=== PATIENT | male | born 1950 | race Caucasian/White ===

== ENCOUNTER 2016-06-05 20:17 | Inpatient (IN) | payer MEDICARE, OTHER ==
[~2016-06-05 20:17] MED LIST: LORazepam INJ* 2 MG/ML 1 ML VIAL ONE
[2016-06-05 20:35] LABS: Hematocrit 37 % (42-52); Hemoglobin 12.4 g/dl (14.0-18.0); Mean Corpuscular HGB Conc 33 g/dl (31-36); Mean Corpuscular Hemoglobin 29 pg (27-31); Mean Corpuscular Volume 89 fL (80-94); Mean Platelet Volume 6 um3 (7.4-10.4); Red Blood Count 4.22 10^6/ul (4.0-5.4); Red Cell Distribution Width 13 % (10.5-15); White Blood Count 15.7 10^3/ul (3.5-10.8)
[2016-06-05 20:44] LABS: Add Diff/Slide Review? Slide Review Added; Comments Flag Yes
[2016-06-05 20:50] LABS: Albumin 3.6 g/dL (3.2-5.2); BUN/Creatinine Ratio 15.9 (8-20); Calcium 9.3 mg/dL (8.6-10.3); EGFR African American 28.1 (>60); EGFR Non-African American 21.8 (>60); Globulin 3.1 g/dL (2-4); Potassium 4.8 mmol/L (3.5-5.0); Total Bilirubin 0.7 mg/dL (0.2-1.0); Total Protein 6.7 g/dL (6.4-8.9)
--- NOTE | 2016-06-05 20:50 | RAD ---
INDICATION: Altered mental status, new onset seizure. COMPARISON: Comparison is made with a prior study from April 03 2009. TECHNIQUE: Contiguous axial sections of the brain were obtained from the skull base to the vertex without contrast. FINDINGS: The ventricles, cisterns and sulci are within normal limits. There is a small 3 mm area of decreased attenuation adjacent to the frontal horn of the left lateral ventricle suggestive of an old lacunar infarct. No other focal abnormalities or mass effect are seen. There is no evidence for hemorrhage. No significant focal osseous abnormality is seen. The visualized portion of the paranasal sinuses and mastoid air cells appear clear. IMPRESSION: 1. NO EVIDENCE FOR GROSS ACUTE INFARCT, MASS EFFECT OR HEMORRHAGE. 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
[2016-06-05] MEDS ORDERED: Vancomycin(*) 1,500 MG in NS 0.9% 250 ML* 250 ML IVPB ONE (20:53)
[2016-06-05] MEDS ORDERED: Piperac/Tazob 3.375 gm in NS* 3.375 GM/100 ML BAG IVPB ONE (20:53)
--- NOTE | 2016-06-05 20:59 | RAD ---
INDICATION: Shortness of breath. COMPARISON: There are no prior studies available for comparison. TECHNIQUE: A portable view of the chest was obtained. FINDINGS: Cardiac and mediastinal contours appear to be within normal limits. The lungs are hyperinflated and clear. No pleural effusion is seen. IMPRESSION: THERE IS CONSISTENT WITH COPD, NO EVIDENCE FOR ACUTE FINDING.
[2016-06-05 21:00] LABS: Troponin I 0.25 ng/mL (<0.04)
[2016-06-05] MEDS ORDERED: NS 0.9% 250 ML* 250 ML IV ONE (21:12)
[2016-06-05 21:50] LABS: FIO2 40
[2016-06-05 21:53] LABS: PCO2 Arterial 57 mmHg (35-45)
[2016-06-05] MEDS ORDERED: NS 0.9% 250 ML* 0 ML ONE (21:56)
[2016-06-05] MEDS ORDERED: NS 0.9% 500 ML BAG* 500 ML IV SCH (22:00)
[2016-06-05 22:03] LABS: Urine Bacteria Absent (Absent); Urine Bilirubin Negative (Negative); Urine Glucose Negative (Negative); Urine Nitrite Negative (Negative)
[2016-06-05 22:29] LABS: Benzodiazepine Urine Screen None Detected (None Detect)
[2016-06-05] MEDS ORDERED: Acetaminophen TAB* 325 MG PO PRN (22:32)
[2016-06-05] MEDS ORDERED: Ondansetron INJ* 2 MG/ML VIAL IV PRN (22:32)
[2016-06-05] MEDS ORDERED: Albuterol/Ipratropium NEB.SOL* Albuterol 2.5 MG/Ipratropium 0.5 MG 3 ML INH PRN (22:36)
[2016-06-05 23:05] LABS: TSH (Thyroid Stimulating Horm) 0.43 mcIU/mL (0.34-5.60)
--- NOTE | 2016-06-05 23:14 | RAD ---
INDICATION: Abdominal distention, respiratory distress. COMPARISON: Comparison is made with a prior chest x-ray study obtained earlier today. TECHNIQUE: A CT scan of the chest, abdomen and pelvis was performed without intravenous or oral contrast. Contiguous axial sections were obtained from the lung apices through the symphysis pubis. Images were reconstructed in the coronal and sagittal planes. FINDINGS: There is moderate bilateral emphysematous change. There is a small infiltrate in the right lower lobe. There is minimal atelectasis in the left lower lobe. No pleural effusion is seen. No significant enlarged mediastinal or hilar lymph nodes are seen. The heart is within normal limits in size. No pericardial effusion is present. The thoracic aorta is normal in caliber. The liver and spleen are normal in size without significant focal abnormality. No calcified gallstones are seen. The pancreas is normal in size. The adrenal glands appear to be within normal limits. The right kidney is atrophic. There is a 2 cm hypodense area present in the midportion of the kidney suggestive of a cyst. No hydronephrosis is present. There are calcifications within the left renal hilum which appear vascular. No renal calculi are seen. There is perinephric stranding around both kidneys. There is a catheter within the urinary bladder which is nondistended. The aorta is normal in caliber and there is severe calcific plaque present. No significant enlarged retroperitoneal lymph nodes are seen. The stomach and small bowel are nondistended. There is moderate gaseous distention of the colon. There is no evidence for diverticulitis or colitis. No free intraperitoneal air or fluid is seen. There is a moderate compression fracture of the L2 vertebral body and a mild compression fracture of the L4 vertebral body which are unchanged from a prior lumbar spine series from March 2009. IMPRESSION: 1. SMALL RIGHT LOWER LOBE INFILTRATE SUGGESTIVE OF PNEUMONIA. 2. EMPHYSEMA. 3. GASEOUS DISTENTION OF THE COLON, NO EVIDENCE FOR OBSTRUCTION. 4. CHRONIC COMPRESSION FRACTURES OF LUMBAR VERTEBRAE NOTED.
[2016-06-05 23:23] LABS: Prolactin 7.4 ng/mL (1.0-20.0)
[2016-06-06] MEDS: NS 0.9% 1000 ML* 1,000 ML IV ONE ×2 (00:06→00:07)
[2016-06-06] MEDS: NS 0.9% 1000 ML* 1,000 ML IV SCH ×2 (00:18→11:53)
[2016-06-06] MEDS: cefTRIAXone VIAL(*) 1,000 MG in NS 0.9% 50 ML* 50 ML IVPB SCH ×2 (00:20→23:57)
[2016-06-06] MEDS: Albuterol 2.5 MG/3 ML NEB.SOL* (0.083%) INH SCH ×6 (00:41→20:01)
[2016-06-06] MEDS: Azithromycin IV(*) 500 MG in NS 0.9% 250 ML* 250 ML IVPB SCH ×2 (00:52→22:30)
[2016-06-06] MEDS: predniSONE TAB* 20 MG PO SCH ×2 (00:58→08:37)
--- NOTE | 2016-06-06 01:05 | PN ---
Progress Note - Progress Note Note: Influenza B positive, ordered Droplet precautions & renal dosing of oseltamivir.
[2016-06-06 01:15] LABS: BUN/Creatinine Ratio 17.7 (8-20); Calcium 7.9 mg/dL (8.6-10.3); EGFR African American 33.6 (>60); EGFR Non-African American 26.1 (>60); Potassium 3.9 mmol/L (3.5-5.0)
[2016-06-06 01:18] LABS: Troponin I 0.19 ng/mL (<0.04)
[2016-06-06] MEDS ORDERED: Piperac/Tazob 3.375 gm in NS* 3.375 GM/100 ML BAG IVPB SCH (01:30)
[2016-06-06 01:44] LABS: Urine Bacteria Absent (Absent); Urine Bilirubin Negative (Negative); Urine Glucose Negative (Negative); Urine Nitrite Negative (Negative)
[2016-06-06 04:12] LABS: Hematocrit 31 % (42-52); Hemoglobin 9.9 g/dl (14.0-18.0); Mean Corpuscular HGB Conc 33 g/dl (31-36); Mean Corpuscular Hemoglobin 30 pg (27-31); Mean Corpuscular Volume 91 fL (80-94); Mean Platelet Volume 6 um3 (7.4-10.4); Red Blood Count 3.37 10^6/ul (4.0-5.4); Red Cell Distribution Width 14 % (10.5-15); White Blood Count 10.2 10^3/ul (3.5-10.8)
[2016-06-06 04:14] LABS: Add Diff/Slide Review? Slide Review Added; Comments Flag Yes
[2016-06-06 04:52] LABS: BUN/Creatinine Ratio 17.8 (8-20); Calcium 7.7 mg/dL (8.6-10.3); EGFR African American 34.6 (>60); EGFR Non-African American 26.9 (>60); Potassium 3.9 mmol/L (3.5-5.0)
[2016-06-06 04:57] LABS: Troponin I 0.23 ng/mL (<0.04)
[2016-06-06] MEDS: Heparin VIAL(*) 5000 UNITS/ML VIAL (FIVE THOUSAND) SUBCUT SCH ×4 (05:27→21:31)
[2016-06-06] MEDS: busPIRone TAB* 5 MG PO SCH ×3 (05:27→21:31)
--- NOTE | 2016-06-06 06:39 | HP ---
HISTORY AND PHYSICAL:* ADDENDUM: Please add this to the end of the dictation: Elevated troponin: Etiology is unclear; it could be demand ischemia from possible sepsis with an unclear source. My plan at this point is to trend these , get an echo in the morning. He is not having any active cardiac symptoms, so we will continue to follow. ZACK WATSON, PETE [id number]/[facility] #: [id number] RUDY
--- NOTE | 2016-06-06 06:39 | HP ---
ADDENDUM NOW INCLUDED ON THIS REPORT HISTORY AND PHYSICAL: DATE OF ADMISSION: 06/05/16 PRIMARY CARE PROVIDER: Sonia MCKOY. ATTENDING PHYSICIAN WHILE IN THE HOSPITAL: Dr. Monsalve *(report dictated by Chau Watson NP). CHIEF COMPLAINT: "I'm sick." HISTORY OF PRESENT ILLNESS: Mr. Torrez is a 65-year-old male patient with a history of hypertension, COPD and chronic back pain. He is a very vague historian. I have asked him why he came into the ER today and he simply said I don't feel good; I feel sick. I asked him to elaborate on this and said, "How long have you been sick for and what you mean when you say you feel sick." I asked him if he had been feeling shortness of breath or cough. He said positive yes to shortness of breath. He had been having chills. Denied any chest pain, and he says he has actually been gaining weight and the family said that he has been declining over the last 3 weeks. The patient said that he had not had any vomiting or diarrhea. The son says that he has had a generalized decline over the last 3 years, but they have noticed acutely that with his mentation he was a little bit more confused than his baseline. Again, both his son and the patient are very poor historians. I asked him why he called the ambulance today and the son had said that his cousin was with his father, the patient's nephew and the nephew who, unfortunately, isn't here noticed that the patient had had an episode where he became unresponsive while sitting in his hospital bed. He dozed off. The nephew thinks that maybe he had a seizure. It is unclear if he did or not. The patient's son instructed the nephew to call 911 and he came into the hospital. When he came in, he was noted to be altered by the ED staff, but now he is answering my questions. He is not complaining of a headache or any neck pain. There has been no recent changes in medications. He has been taking his medications as prescribed. There have been no reports of rashes or any pain. But, it was found ultimately that he had a lactic acidosis of 5. His troponin was elevated. It was noted that he had a sodium of 118, and a troponin that was elevated, and the hospitalist service was asked to evaluate for admission. PAST MEDICAL HISTORY: Significant for: 1. Hypertension. 2. COPD. 3. Back pain. PAST SURGICAL HISTORY: Denied. HOME MEDICATIONS: According to the bottles he brought in include: 1. BuSpar 5 mg p.o. ever 8 hours. 2. Lisinopril 30 mg p.o. daily. 3. Prilosec 20 mg p.o. b.i.d. 4. Hydrochlorothiazide 50 mg daily. 5. B12 500 mcg p.o. daily. 6. Robaxin 500 mg p.o. t.i.d. as needed. 7. Amoxicillin 500 mg p.o. t.i.d. 8. DayQuil liquid one capsule p.o. daily. 9. Vitamin D 3000 mg p.o. daily. ALLERGIES TO MEDICATIONS: No known drug allergies. FAMILY HISTORY: The patient's mother is alive. Father had a history of lung disease; he was a coal loader. SOCIAL HISTORY: He does not smoke. He does smoke marijuana daily. He does drink alcohol. Surrogate decision maker is his sister, Davina. REVIEW OF SYSTEMS: No documented fever, but he does admit to having chills. He denied having any significant weight change with the exception he said he has gained weight. There is no double vision. There is no ear discharge. He denied having any rhinorrhea. No sore throat. No thyroid enlargement. Denied having any chest pain. There is no orthopnea. No nocturnal dyspnea. There is dyspnea on exertion and shortness of breath. There is no abdominal pain. No nausea, no vomiting. No dysuria, no frequency. No loss of conscious. No pruritus and no skin ulcerations. Review of 14 systems completed and all others negative. PHYSICAL EXAMINATION GENERAL: At this time Mr. Torrez is a 65-year-old male patient. He appears older than the stated age, and he is chronically ill appearing. He does not appear to be in any acute distress. VITAL SIGNS: Reveals blood pressure 155/75, pulse 105, respirations 18, O2 sat 93%, and a temperature of 97.9. HEENT: Head is atraumatic and normocephalic. Eyes: EOMs intact. His sclerae was anicteric. Left Eye: He does appear to have a cataract to the left eye. He does have some redness to that eye as well. No discharge noted though. Pupils reactive to light. Throat: Oral mucosa appeared to be dry. No oropharyngeal erythema. NECK: Supple. LUNGS: He had wheezes throughout and equal diaphragmatic expansion. HEART: Sounds S1, S2. Regular rate and rhythm. No murmurs, rubs or gallops. He is tachycardic at a rate of 120. ABDOMEN: His abdomen was soft, flat and mildly distended. There was no tenderness on exam. EXTREMITIES: Pulses are 2+ throughout. He is able to move all 4 extremities with 5/5 strength. NEUROLOGIC: The patient is awake. He is alert. He is confused to time, and place and alert to himself. His trap setter were equal. Tongue midline. His speech was clear. He was moving all 4 extremities. He has no drift. He had no gross focal deficits. His skin is intact. DIAGNOSTIC STUDIES/LABORATORY DATA: Labs today reveal WBC 15.7, RBC 4.22, hemoglobin 12.4, hematocrit 37, platelet count 400. The INR was 0.93. The blood gas showed pH 729, pCO2 57, pO2 72. His sodium was 118 and his chloride was 74, his potassium was 4.8. His BUN was 46, creatinine was 2.9; I don't have previous for comparison. His glucose was 100. His lactic was 5.3. Calcium 9.3, total bili 0.7. AST 76, ALT 24, alk phos 99, troponin 0.25, albumin 3.6. Urine showed 1+ protein, trace ketones, 2+ blood. Urine toxicology was positive for cannabis. He did have an EKG obtained today which did show a sinus tachycardia with a PVC rate of 133. No previous EKG for comparison. He had a chest x-ray which appeared to have hyperinflated lungs and no infiltration on my read; radiology read this as consistent with COPD elements with acute findings. He had a brain CT obtained today which revealed no evidence for gross acute infarct, mass effect, or hemorrhage. Old lacunar infarct. Old medical records were reviewed. ASSESSMENT AND PLAN: Mr. Torrez is a 65-year-old male patient with multiple electrolyte abnormalities coming in today with complaints eventually of altered mental status, shortness of breath. Hospitalist service was asked to evaluate for admission. He will be admitted under inpatient status for: 1. Hyponatremia. Again, it is unclear if he had a seizure or not. My plan at this point will be to go ahead; he appears to be very dehydrated. I think the hyponatremia is probably from hypovolemia. My plan is go ahead and hydrate the patient. I will give him a liter of fluids wide open and normal saline at 125 cc an hour. I will check his BNP at midnight. I do not think he needs 3% right now unless he has seizure. I will get a urine sodium, urine serum, urine osmolality, and a serum osmolality. In addition to this, I will check a TSH and cortisol level. I think, again most likely and I will stop his hydrochlorothiazide as this may be an offending agent. He does appear to be dehydrated. I am going to get a CT of the chest, abdomen and pelvis. 2. Systemic inflammatory response syndrome. He certainly does have signs consistent with systemic inflammatory response syndrome with lactic of 5.2. He has got a white count. He is tachycardic. I do not have an obvious source. His lungs on exam. He was having significant wheezing. Certainly, if he has an atypical pneumonia that could cause his low sodium. My plan would be to put him empirically on Zosyn and azithromycin, and to look for sources. We will send off urine cultures and blood cultures. And again, the chest x-ray did not show pneumonia, but I think he does warrant a CT of the chest and of the abdomen and pelvis given the hyponatremia, and the fact that he did have such a long history of smoking one might think malignancy could be in the differential , and will continue to follow. 3. Lactic acidosis. Again, if he is truly did seize, that could cause this, or again if he is septic this could cause a lactic of 5.3. So I am putting him in the ICU, hydrating him with fluids; and, hopefully, with fluids he comes down. His blood pressure is stable and we will continue to monitor. 4. Acute renal failure. We will send off a FeNa. We did get a CT of abdomen and pelvis to look for any urinary obstruction. He is not having any pain. So I think this is less likely. I will go ahead and again hydrate him, send off a FeNa. I think this is probably prerenal, but he may have ATN and will hold his blood pressure meds for the time being. 5. Chronic obstructive pulmonary disease. He is wheezing pretty significantly on exam, so I put him on standing neb. In addition to this, I also placed him on steroids and Dulera, and we will continue to follow and I've ordered p.r.n. albuterol. 6. Chronic back pain. I have ordered Tylenol as needed. 7. DVT prophylaxis. We will place him on heparin subcu. 8. Code status. He wished to be a DNR. 9. Fluid, electrolytes and nutrition. He will be on a regular diet. TIME SPENT: Time spent on the admission was 70 minutes, greater than half the time was [id number] with the patient obtaining history and physical, other half of the time was spent going over the plan of care with the patient and implementing the plan of care. I did discuss the plan of care with my attending , Dr. Monsalve; he is in agreement. CHAU WATSON NP ADDENDUM: : Elevated troponin: Etiology is unclear; it could be demand ischemia from possible sepsis with an unclear source. My plan at this point is to trend these , get an echo in the morning. He is not having any active cardiac symptoms, so we will continue to follow. CHAU WATSON NP CC: [facility] in [place].* [id number]/[facility] #: [id number]/[facility] #: [id number] RUDY
[2016-06-06] MEDS: Mometasone/Formoter 200/5 MDI INH SCH ×2 (07:30→20:02)
[2016-06-06] MEDS: Oseltamivir CAP* 30 MG CAP PO SCH (08:37)
[2016-06-06] MEDS: Omeprazole CAP* 20 MG PO SCH ×2 (08:37→21:31)
--- NOTE | 2016-06-06 10:36 | ECHO ---
Patient: CARSON IVORY [facility] Rec#: [id number] : 1950 Date: 06/06/2016 Age: 65y Height: 177.8 cm / 70.0 in Weight: 63.5 kg / 140.0 lbs Sex: M BSA: 1.79 Room#: [facility] Admit Date#: 06/05/2016 Type: Inpatient Referring: Chau Mackay NP Reading: Romel Boyd MD Airline Captain: Marquita Cabrera RDCS CC: Shahid Keith MD Transthoracic Echocardiogram Indication: ACS BP: 154/74 HR: 113 Rhythm: Tachycardia Findings History: HTN,COPD,chronic back pain, hyponatremia. Technical Comments: The study is technically difficult. The study is technically limited due to poor apical windows. The study is technically limited due to the patient's history of COPD. Completed at 0850. Left Ventricle: The left ventricular chamber size is normal. Global left ventricular wall motion and contractility are within normal limits. There is normal left ventricular systolic function. Unable to estimate left ventricular ejection fraction. In limited acceptable quality views , the LVEF appears approximately 55-60%. The patient was unable to perform a Valsalva maneuver. Left Atrium: The left atrial chamber size is normal. Right Ventricle: The right ventricle is not well visualized. The right ventricle wall thickness is mildly increased. The right ventricular global systolic function is normal. Right Atrium: The right atrial cavity size is normal. Aortic Valve: The aortic valve structure is not well visualized. There is no evidence of aortic regurgitation. There is no evidence of aortic stenosis. Mitral Valve: The mitral valve leaflets are mildly thickened. There is no evidence of mitral regurgitation. There is no evidence of mitral stenosis. Tricuspid Valve: The tricuspid valve leaflets are mildly thickened. There is moderate to severe tricuspid regurgitation. The tricuspid regurgitant jet is extending to dome (back wall of RA). There is evidence of severe pulmonary hypertension. There is no tricuspid stenosis. Pulmonic Valve: The pulmonic valve structure is not well visualized. Pericardium: The pericardium appears normal. Aorta: The aortic arch is not well visualized. There is mild dilatation of the aortic root. Pulmonary Artery: The main pulmonary artery is not well visualized. Venous: The inferior vena cava appears normal in size. There is a greater than 50% respiratory change in the inferior vena cava dimension. Conclusions The study is technically difficult. The study is technically limited due to poor apical windows. The study is technically limited due to the patient's history of COPD. Completed at 0850. There is normal left ventricular systolic function. Unable to estimate left ventricular ejection fraction. In limited acceptable quality views , the LVEF appears approximately 55-60%. There is moderate to severe tricuspid regurgitation. There is evidence of severe pulmonary hypertension. There is mild dilatation of the aortic root. No reports of prior studies are offeredf for comparison. Measurements Name Value Normal Range RVIDd (AP) 2D 2.3 cm (0.9 - 2.6) RVDdMajor (2D) 2.5 cm (2.2 - 4.4) RVAW (2D) 0.7 cm (0.2 - 0.5) RAd ISD 4CH 3.8 cm (3.4 - 4.9) RA (A4C)W 2.5 cm (2.9 - 4.6) IVSd (2D) 0.8 cm (0.6 - 1) LVPWd (2D) 1 cm (0.6 - 1) LVIDd (2D) 4.2 cm (3.6 - 5.4) LVIDs (2D) 1.9 cm - LV FS (2D) 54 % (25 - 45) Aortic Annulus 2.3 cm (1.4 - 2.6) Ao root diameter (2D) 4.1 cm (2.1 - 3.5) Aortic arch 1.7 cm (1.8 - 3.4) Descending Ao 0.3 cm - LA dimension (AP) 2D 2.3 cm (2.3 - 3.8) LAd ISD 4CH 3.7 cm (2.9 - 5.3) LA ISD 4CH W 3.3 cm (2.5 - 4.5) Name Value Normal Range MV E-wave Vmax 0.7 m/sec - MV deceleration time 124 msec - MV A-wave Vmax 0.9 m/sec - MV E:A ratio 0.85 ratio - LV septal e' Vmax 0.08 m/sec - LV lateral e' Vmax 0.09 m/sec - LV E:e' septal ratio 8.75 ratio - LV E:e' lateral ratio 7.78 ratio - Name Value Normal Range AV Vmax 1.7 m/sec - AV VTI 22.5 cm - AV peak gradient 12.03 mmHg - AV mean gradient 6.25 mmHg - LVOT Vmax 0.8 m/sec - LVOT VTI 16.5 cm - LVOT peak gradient 2.63 mmHg - LVOT mean gradient 1.17 mmHg - Name Value Normal Range TR Vmax 3.9 m/sec - TR peak gradient 59 mmHg - RAP 3 mmHg - RVSP 62 mmHg - IVC diameter 1.5 cm -
[2016-06-06] MEDS ORDERED: NS 0.9% 1000 ML* 1,000 ML IV ONE (17:12)
--- NOTE | 2016-06-06 17:18 | PN ---
Subjective Date of Service: 06/06/16 Interval History: Feels better. Fair appetite. No new c/o. Uses O2 at 4 L at home, walks at most 20 feet at a time at home. Objective Active Medications: Acetaminophen (Tylenol Tab*) 650 mg PO Q4H PRN PRN Reason: FEVER/PAIN Albuterol (Ventolin 2.5 Mg/3 Ml Neb.Cora*) 2.5 mg INH Q4H [facility] Last Admin: 06/06/16 15:44 Dose: 2.5 mg Albuterol/Ipratropium (Duoneb (Albuterol 2.5 Mg/Ipratropium 0.5 Mg)) 1 neb INH Q2H PRN PRN Reason: SOB/WHEEZING Buspirone HCl (Buspar Tab*) 5 mg PO Q8HR [facility] Last Admin: 06/06/16 13:35 Dose: 5 mg Heparin Sodium (Porcine) (Heparin Vial(*)) 5,000 units SUBCUT Q8HR [facility] Last Admin: 06/06/16 13:35 Dose: Not Given Azithromycin 500 mg/ Sodium (Chloride) 250 mls @ 250 mls/hr IVPB Q24H [facility] Last Admin: 06/06/16 00:52 Dose: 250 mls/hr Ceftriaxone Sodium 1,000 mg/ (Sodium Chloride) 50 mls @ 200 mls/hr IVPB Q24H [facility] Last Admin: 06/06/16 00:20 Dose: 200 mls/hr Mometasone Furoate/Formoterol Fumar (Dulera 200/5 Mdi*) 2 puff INH BID [facility] Last Admin: 06/06/16 07:30 Dose: 2 puff Omeprazole (Prilosec Cap*) 20 mg PO BID [facility] Last Admin: 06/06/16 08:37 Dose: 20 mg Ondansetron HCl (Zofran Inj*) 4 mg IV Q6H PRN PRN Reason: NAUSEA Oseltamivir Phosphate (Tamiflu Cap*) 30 mg PO DAILY [facility] Last Admin: 06/06/16 08:37 Dose: 30 mg Prednisone (Deltasone Tab*) 60 mg PO DAILY [facility] Last Admin: 06/06/16 08:37 Dose: Not Given Vital Signs 06/05/16 06/05/16 06/05/16 22:30 22:32 23:00 Temperature 97.8 F Pulse Rate 110 114 Respiratory 15 16 Rate Blood Pressure 156/85 173/84 (mmHg) O2 Sat by Pulse 97 98 Oximetry 06/05/16 06/05/16 06/06/16 23:07 23:30 00:00 Temperature 97.8 F Pulse Rate 110 112 Respiratory 15 15 15 Rate Blood Pressure 158/68 (mmHg) O2 Sat by Pulse 98 100 Oximetry 06/06/16 06/06/16 06/06/16 00:15 00:16 00:20 Temperature Pulse Rate 81 80 Respiratory 14 14 Rate Blood Pressure 85/51 85/52 (mmHg) O2 Sat by Pulse 99 98 Oximetry 06/06/16 06/06/16 06/06/16 00:29 00:30 00:32 Temperature 98.2 F Pulse Rate 77 76 76 Respiratory 14 15 15 Rate Blood Pressure 77/42 77/44 77/47 (mmHg) O2 Sat by Pulse 99 98 99 Oximetry 06/06/16 06/06/16 06/06/16 00:35 00:39 00:42 Temperature Pulse Rate 75 76 114 Respiratory 14 14 18 Rate Blood Pressure 75/48 81/50 (mmHg) O2 Sat by Pulse 98 99 100 Oximetry 06/06/16 06/06/16 06/06/16 01:00 02:00 02:01 Temperature 97.8 F 97.9 F 97.9 F Pulse Rate 116 Respiratory 15 14 13 Rate Blood Pressure 158/76 87/55 (mmHg) O2 Sat by Pulse 100 Oximetry 06/06/16 06/06/16 06/06/16 03:00 04:00 04:48 Temperature 98.0 F 98.1 F Pulse Rate 117 Respiratory 11 15 20 Rate Blood Pressure 99/52 158/77 (mmHg) O2 Sat by Pulse 98 Oximetry 06/06/16 06/06/16 06/06/16 04:51 05:00 05:34 Temperature 98.1 F Pulse Rate 115 Respiratory 16 15 16 Rate Blood Pressure 154/74 (mmHg) O2 Sat by Pulse 100 Oximetry 06/06/16 06/06/16 06/06/16 06:00 07:00 07:01 Temperature 98.0 F 97.9 F 97.9 F Pulse Rate 108 118 116 Respiratory 11 16 16 Rate Blood Pressure 119/66 164/76 (mmHg) O2 Sat by Pulse 99 99 99 Oximetry 06/06/16 06/06/16 06/06/16 07:19 08:00 09:00 Temperature 98.1 F 98.2 F Pulse Rate 110 111 104 Respiratory 17 19 11 Rate Blood Pressure 142/68 162/73 (mmHg) O2 Sat by Pulse 99 95 95 Oximetry 06/06/16 06/06/16 06/06/16 10:00 11:00 11:08 Temperature 98.5 F 98.7 F 98.7 F Pulse Rate 116 109 Respiratory 19 12 19 Rate Blood Pressure 156/70 141/66 (mmHg) O2 Sat by Pulse 99 97 Oximetry 06/06/16 06/06/16 06/06/16 11:11 12:00 13:00 Temperature 98.9 F 98.9 F Pulse Rate 114 115 120 Respiratory 13 18 16 Rate Blood Pressure 156/68 116/52 (mmHg) O2 Sat by Pulse 99 100 94 Oximetry 06/06/16 06/06/16 06/06/16 13:52 14:00 15:00 Temperature 99.1 F 99.1 F Pulse Rate 118 112 Respiratory 16 14 15 Rate Blood Pressure 90/43 112/67 (mmHg) O2 Sat by Pulse 99 99 Oximetry 06/06/16 06/06/16 06/06/16 15:46 15:58 16:00 Temperature 99.3 F Pulse Rate 110 112 Respiratory 12 13 Rate Blood Pressure 147/64 (mmHg) O2 Sat by Pulse 98 96 96 Oximetry 06/06/16 17:00 Temperature 99.1 F Pulse Rate 111 Respiratory 12 Rate Blood Pressure 130/62 (mmHg) O2 Sat by Pulse 95 Oximetry Oxygen Devices in Use Now: Simple Face Mask Appearance: Alert, head partly up in ICU bed. Neutral affect. Looks comfortable. Eyes: No Scleral Icterus Ears/Nose/Mouth/Throat: Clear Oropharnyx, Mucous Membranes Moist Neck: NL Appearance and Movements; NL JVP, No Thyroid Enlargement, Masses Respiratory: Symmetrical Chest Expansion and Respiratory Effort, Clear to Percussion, - - diminishede BS BL Cardiovascular: NL Sounds; No Murmurs; No JVD, RRR, No Edema, - Extremities: No Edema, No Clubbing, Cyanosis, - Skin: No Rash or Ulcers, No Nodules or Sclerosis, - Neurological: NL Sensation, - - Knew the month but not the day. Seems passive. Result Diagrams: 06/06/16 03:55 06/06/16 03:55 Additional Lab and Data: Lab Results 06/05/16 06/05/16 06/05/16 Range/Units 20:20 20:20 20:25 WBC 15.7 H (3.5-10.8) 10^3/ul RBC 4.22 (4.0-5.4) 10^6/ul Hgb 12.4 L (14.0-18.0) g/dl Hct 37 L (42-52) % MCV 89 (80-94) fL MCH 29 (27-31) pg MCHC 33 (31-36) g/dl RDW 13 (10.5-15) % Plt Count 400 (150-450) 10^3/ul MPV 6 L (7.4-10.4) um3 Neut % (Auto) 86.3 H (38-83) % Lymph % (Auto) 3.8 L (25-47) % [place] % (Auto) 9.5 H (1-9) % Eos % (Auto) 0 (0-6) % Baso % (Auto) 0.4 (0-2) % Absolute Neuts (auto) 13.5 H (1.5-7.7) 10^3/ul Absolute Lymphs (auto) 0.6 L (1.0-4.8) 10^3/ul Absolute Monos (auto) 1.5 H (0-0.8) 10^3/ul Absolute Eos (auto) 0 (0-0.6) 10^3/ul Absolute Basos (auto) 0.1 (0-0.2) 10^3/ul Absolute Nucleated RBC 0.01 10^3/ul Nucleated RBC % 0 INR (Anticoag Therapy) 0.93 (0.89-1.11) POC Glucose (mg/dL) 108 H (74-106) mg/dL Microbiology and Other Data: Microbiology 06/06/16 14:01 Nasal Screen MRSA (PCR)(RAMANDEEP) - Final Nasal Mrsa Negative 06/06/16 01:20 Legionella Urinary Antigen - Final Urine Negative Legionella Streptococcus pneumoniae Ag Screen - Final Negative S. pneumo Antigen 06/06/16 00:25 Influenza Types A,B Antigen (RAMANDEEP) - Final Nasal Specimen received for Influenza A/B Molecular testing Assess/Plan/Problems-Billing Assessment: - Patient Problems (1) Hyponatremia Current Visit: Yes Status: Acute Code(s): E87.1 - HYPO-OSMOLALITY AND HYPONATREMIA SNOMED Code(s): 71145023 Comment: Hopefully due mainly to thiazide. Family aware he can't take any more thiazide. NSS at 75 ml/hr, BMP 06/07. (2) COPD (chronic obstructive pulmonary disease) Current Visit: Yes Status: Acute Code(s): J44.9 - CHRONIC OBSTRUCTIVE PULMONARY DISEASE, UNSPECIFIED SNOMED Code(s): 68407264 Comment: Advanced COPD for many years. Quit smoking about 8 yrs ago. Likely the cause of his severe PHTN.
[2016-06-06] MEDS: PTO: Dorzolamide 2% OPTH (NF) 10 ML BTL LEFT EYE SCH (21:30)
[2016-06-07] MEDS: Albuterol 2.5 MG/3 ML NEB.SOL* (0.083%) INH SCH ×6 (00:46→20:24)
[2016-06-07] MEDS: busPIRone TAB* 5 MG PO SCH ×3 (05:37→21:21)
[2016-06-07] MEDS: Heparin VIAL(*) 5000 UNITS/ML VIAL (FIVE THOUSAND) SUBCUT SCH ×3 (05:44→21:24)
[2016-06-07 06:58] LABS: BUN/Creatinine Ratio 18.2 (8-20); EGFR Non-African American 47.4 (>60); Potassium 3.7 mmol/L (3.5-5.0)
[2016-06-07] MEDS: Mometasone/Formoter 200/5 MDI INH SCH ×2 (07:13→20:24)
[2016-06-07] MEDS: Omeprazole CAP* 20 MG PO SCH ×2 (08:48→21:21)
[2016-06-07] MEDS: PTO: Dorzolamide 2% OPTH (NF) 10 ML BTL LEFT EYE SCH ×3 (08:48→21:21)
[2016-06-07] MEDS: Oseltamivir CAP* 30 MG CAP PO SCH ×2 (08:48→21:21)
[2016-06-07] MEDS: predniSONE TAB* 20 MG PO SCH (09:00)
--- NOTE | 2016-06-07 15:45 | PN ---
Subjective Date of Service: 06/07/16 Interval History: Appetite returned. Slept better. No new c/o. Objective Active Medications: Acetaminophen (Tylenol Tab*) 650 mg PO Q4H PRN PRN Reason: FEVER/PAIN Albuterol (Ventolin 2.5 Mg/3 Ml Neb.Cora*) 2.5 mg INH Q4H [facility] Last Admin: 06/07/16 11:04 Dose: 2.5 mg Albuterol/Ipratropium (Duoneb (Albuterol 2.5 Mg/Ipratropium 0.5 Mg)) 1 neb INH Q2H PRN PRN Reason: SOB/WHEEZING Buspirone HCl (Buspar Tab*) 5 mg PO Q8HR [facility] Last Admin: 06/07/16 14:05 Dose: 5 mg Dorzolamide HCl (Trusopt 2% Opth (Nf)) 1 drop LEFT EYE TID [facility] Last Admin: 06/07/16 14:06 Dose: 1 drop Heparin Sodium (Porcine) (Heparin Vial(*)) 5,000 units SUBCUT Q8HR [facility] Last Admin: 06/07/16 13:17 Dose: Not Given Azithromycin 500 mg/ Sodium (Chloride) 250 mls @ 250 mls/hr IVPB Q24H [facility] Last Admin: 06/06/16 22:30 Dose: 250 mls/hr Ceftriaxone Sodium 1,000 mg/ (Sodium Chloride) 50 mls @ 200 mls/hr IVPB Q24H [facility] Last Admin: 06/06/16 23:57 Dose: 200 mls/hr Latanoprost (Xalatan 0.005%*) 1 drop LEFT EYE QPM [facility] Mometasone Furoate/Formoterol Fumar (Dulera 200/5 Mdi*) 2 puff INH BID [facility] Last Admin: 06/07/16 07:13 Dose: 2 puff Omeprazole (Prilosec Cap*) 20 mg PO BID [facility] Last Admin: 06/07/16 08:48 Dose: 20 mg Ondansetron HCl (Zofran Inj*) 4 mg IV Q6H PRN PRN Reason: NAUSEA Oseltamivir Phosphate (Tamiflu Cap*) 30 mg PO DAILY [facility] Last Admin: 06/07/16 08:48 Dose: 30 mg Prednisone (Deltasone Tab*) 60 mg PO DAILY [facility] Last Admin: 06/07/16 09:00 Dose: Not Given Vital Signs 06/06/16 06/06/16 06/06/16 15:46 15:58 16:00 Temperature 99.3 F Pulse Rate 110 112 Respiratory 12 13 Rate Blood Pressure 147/64 (mmHg) O2 Sat by Pulse 98 96 96 Oximetry 06/06/16 06/06/16 06/06/16 17:00 18:00 19:00 Temperature 99.1 F 99.1 F 97.8 F Pulse Rate 111 111 121 Respiratory 12 14 22 Rate Blood Pressure 130/62 139/78 151/77 (mmHg) O2 Sat by Pulse 95 98 99 Oximetry 06/06/16 06/06/16 06/06/16 20:00 20:02 23:21 Temperature 97.9 F Pulse Rate 111 111 Respiratory 20 18 Rate Blood Pressure 121/64 (mmHg) O2 Sat by Pulse 98 99 Oximetry 06/07/16 06/07/16 06/07/16 07:14 08:00 08:01 Temperature 97.9 F Pulse Rate 105 115 Respiratory 15 18 18 Rate Blood Pressure 137/66 (mmHg) O2 Sat by Pulse 95 100 Oximetry Oxygen Devices in Use Now: Simple Face Mask Appearance: Alert, head partly up in bed. In good spirits. Looks comfortable. Eyes: No Scleral Icterus Neck: NL Appearance and Movements; NL JVP, No Thyroid Enlargement, Masses Respiratory: Symmetrical Chest Expansion and Respiratory Effort, Clear to Auscultation, Clear to Percussion Cardiovascular: NL Sounds; No Murmurs; No JVD, RRR, No Edema Extremities: No Edema, No Clubbing, Cyanosis, - Skin: No Rash or Ulcers, No Nodules or Sclerosis, - Neurological: Alert and Oriented x 3, NL Sensation Result Diagrams: 06/06/16 03:55 06/07/16 05:56 Additional Lab and Data: Lab Results 06/05/16 06/05/16 06/05/16 Range/Units 20:20 20:20 20:25 WBC 15.7 H (3.5-10.8) 10^3/ul RBC 4.22 (4.0-5.4) 10^6/ul Hgb 12.4 L (14.0-18.0) g/dl Hct 37 L (42-52) % MCV 89 (80-94) fL MCH 29 (27-31) pg MCHC 33 (31-36) g/dl RDW 13 (10.5-15) % Plt Count 400 (150-450) 10^3/ul MPV 6 L (7.4-10.4) um3 Neut % (Auto) 86.3 H (38-83) % Lymph % (Auto) 3.8 L (25-47) % [place] % (Auto) 9.5 H (1-9) % Eos % (Auto) 0 (0-6) % Baso % (Auto) 0.4 (0-2) % Absolute Neuts (auto) 13.5 H (1.5-7.7) 10^3/ul Absolute Lymphs (auto) 0.6 L (1.0-4.8) 10^3/ul Absolute Monos (auto) 1.5 H (0-0.8) 10^3/ul Absolute Eos (auto) 0 (0-0.6) 10^3/ul Absolute Basos (auto) 0.1 (0-0.2) 10^3/ul Absolute Nucleated RBC 0.01 10^3/ul Nucleated RBC % 0 INR (Anticoag Therapy) 0.93 (0.89-1.11) POC Glucose (mg/dL) 108 H (74-106) mg/dL Microbiology and Other Data: Microbiology 06/06/16 14:01 Nasal Screen MRSA (PCR)(RAMANDEEP) - Final Nasal Mrsa Negative 06/06/16 01:20 Legionella Urinary Antigen - Final Urine Negative Legionella Streptococcus pneumoniae Ag Screen - Final Negative S. pneumo Antigen 06/06/16 00:25 Influenza Types A,B Antigen (RAMANDEEP) - Final Nasal Specimen received for Influenza A/B Molecular testing Assess/Plan/Problems-Billing Assessment: - Patient Problems (1) Hyponatremia Current Visit: Yes Status: Acute Code(s): E87.1 - HYPO-OSMOLALITY AND HYPONATREMIA SNOMED Code(s): 19412074 Comment: Likely due mainly to thiazide, as is correcting rapidly. Family aware he can't take any more thiazide. Stop NSS. (2) COPD (chronic obstructive pulmonary disease) Current Visit: Yes Status: Acute Code(s): J44.9 - CHRONIC OBSTRUCTIVE PULMONARY DISEASE, UNSPECIFIED SNOMED Code(s): 00797026 Comment: Advanced COPD for many years. Quit smoking about 8 yrs ago. Likely the cause of his severe PHTN. (3) Influenza B Current Visit: Yes Status: Acute Code(s): J10.1 - FLU DUE TO OTH IDENT INFLUENZA VIRUS W OTH RESP MANIFEST SNOMED Code(s): 21985294 Comment: continue oseltamivir, last dose 06/10.
[2016-06-07] MEDS ORDERED: Latanoprost 0.005%* 2.5 ml BTL LEFT EYE SCH (18:00)
[2016-06-07] MEDS ORDERED: Azithromycin TAB* 250 MG PO SCH (20:00)
--- NOTE | 2016-06-07 21:29 | ED ---
Eamon Hammond Billy, scribed for Gurdeep Ortega MD on 06/05/16 at 2054 . Complex/Multi-Sys Presentation - HPI Summary HPI Summary: Patient is a 65 year-old male BIBA to [facility] for evaluation of SOB. EMS states that the patient has had several weeks of flu-like symptoms. His son states that he has had decreased "ambition to do things" which has been gradually worsening with time. Positive nausea, diarrhea, diaphoresis. Son denies any fever, coughing, sneezing, headache, or neck pain. Son states that the patient showed decreased activity yesterday, and only got up out of bed to use the bathroom. EMS reports that when they arrived, he was A&Ox3, but he had a generalized tonic-clonic seizure en route. Patient has no history of seizure. Here in the ED, the patient reports feeling dizzy and chest pain. At home, patient uses 24/7 O2. - History Of Current Complaint Chief Complaint: EDShortnessOfBreath Time Seen by Provider: 06/05/16 20:17 Hx Obtained From: Family/Director Of Workforce Development, EMS Hx From Patient Unobtainable Due To: Other - Level 5 caveat Onset/Duration: Gradual Onset Timing: Constant Severity Currently: Moderate Severity Initially: Moderate Aggravating Factor(s): none Alleviating Factor(s): none Associated Signs And Symptoms: Positive: Weakness, SOB, Chest Pain, Nausea, Diarrhea, Diaphoresis. Negative: Headache, Cough, Vomiting, Fever - Allergies/Home Medications Allergies/Adverse Reactions: Allergies Allergy/AdvReac Type Severity Reaction Status Date / Time No Known Allergies Allergy Verified 06/05/16 20:54 Home Medications: Home Medications Amoxicillin CAP* [Amoxicillin 500 MG CAP*] 500 mg PO TID 06/05/16 [History Confirmed 06/05/16] Cholecalciferol [D3-1000] 1,000 unit PO 06/05/16 [History] Cyanocobalamin TAB* [Vitamin B12 TAB*] 500 mcg PO DAILY 06/05/16 [History Confirmed 06/05/16] Dextromethorphan-Phenylephrine [Day Time Multi-Symptom Co 10-5-325 mg/15Ml] 1 liq PO 06/05/16 [History] Hydrochlorothiazide TAB* [Hydrodiuril TAB*] 50 mg PO DAILY 06/05/16 [History Confirmed 06/05/16] Lisinopril [Lisinopril 40 MG-] 40 mg PO DAILY 06/05/16 [History Confirmed ] Methocarbamol TAB* [Robaxin TAB*] 500 mg PO TID PRN 06/05/16 [History Confirmed 06/05/16] Omeprazole CAP* [Prilosec CAP* 20 MG] 20 mg PO BID 06/05/16 [History Confirmed 06/05/16] busPIRone TAB* [Buspar TAB*] 5 mg PO Q8HR 06/05/16 [History Confirmed 06/05/16] PMH/Surg Hx/FS Hx/Imm Hx Sensory History: Reports: Hx Glaucoma Psychiatric History: Reports: Hx Post Traumatic Stress Disorder Infectious Disease History: No Infectious Disease History: Denies: Traveled Outside the [place] in Last 30 Days - Family History Known Family History: Positive: Unknown - Not obtained, level 5 caveat - Social History Lives: With Family Alcohol Use: None Substance Use Type: Reports: Marijuana Smoking Status (MU): Former Smoker Review of Systems Positive: Fatigue, Skin Diaphoresis Negative: Erythema Negative: Sore Throat Positive: Chest Pain Positive: Shortness Of Breath. Negative: Cough Positive: Diarrhea, Nausea. Negative: Abdominal Pain, Vomiting Negative: Myalgia, Edema Negative: Rash Neurological: Other - dizzy Positive: Weakness All Other Systems Reviewed And Are Negative: Yes Physical Exam - Summary Physical Exam Summary: Constitutional: Well-developed, Well-nourished, Alert. (-) Distressed Skin: Warm, Diaphoretic. HENT: Normocephalic; Atraumatic. Dry oral mucosa. Eyes: Conjunctiva normal Neck: Musculoskeletal ROM normal neck. (-) JVD, (-) Stridor, (-) Tracheal deviation Cardio: Rhythm regular, rate tachycardia, Heart sounds normal; Intact distal pulses; The pedal pulses are 2+ and symmetric. Radial pulses are 2+ and symmetric. (-) Murmur Pulmonary/Chest wall: Tachypnea. Rhonchi at the bases, expiratory wheezing. Abd: Soft, (-) Tenderness, (-) Distension, (-) Guarding, (-) Rebound Musculoskeletal: (-) Edema Lymph: (-) Cervical adenopathy Neuro: Alert but not oriented. Psych: Mood and affect Normal Triage Information Reviewed: Yes Vital Signs On Initial Exam: Initial Vitals Temp Pulse Resp BP Pulse Ox 97.9 F 126 22 120/83 99 06/05/16 20:22 06/05/16 20:22 06/05/16 20:22 06/05/16 20:22 06/05/16 20:22 Vital Signs Reviewed: Yes Diagnostics - Vital Signs Vital Signs Temp Pulse Resp BP Pulse Ox 06/05/16 20:27 129 19 100 06/05/16 20:22 97.9 F 126 22 120/83 99 - Laboratory Lab Results: Lab Results 06/05/16 06/05/16 06/05/16 Range/Units 20:20 20:20 20:25 WBC 15.7 H (3.5-10.8) 10^3/ul RBC 4.22 (4.0-5.4) 10^6/ul Hgb 12.4 L (14.0-18.0) g/dl Hct 37 L (42-52) % MCV 89 (80-94) fL MCH 29 (27-31) pg MCHC 33 (31-36) g/dl RDW 13 (10.5-15) % Plt Count 400 (150-450) 10^3/ul MPV 6 L (7.4-10.4) um3 Neut % (Auto) 86.3 H (38-83) % Lymph % (Auto) 3.8 L (25-47) % [place] % (Auto) 9.5 H (1-9) % Eos % (Auto) 0 (0-6) % Baso % (Auto) 0.4 (0-2) % Absolute Neuts (auto) 13.5 H (1.5-7.7) 10^3/ul Absolute Lymphs (auto) 0.6 L (1.0-4.8) 10^3/ul Absolute Monos (auto) 1.5 H (0-0.8) 10^3/ul Absolute Eos (auto) 0 (0-0.6) 10^3/ul Absolute Basos (auto) 0.1 (0-0.2) 10^3/ul Absolute Nucleated RBC 0.01 10^3/ul Nucleated RBC % 0 INR (Anticoag Therapy) 0.93 (0.89-1.11) POC Glucose (mg/dL) 108 H (74-106) mg/dL Result Diagrams: 06/05/16 20:20 06/05/16 20:20 Lab Statement: Any lab studies that have been ordered have been reviewed, and results considered in the medical decision making process. - Radiology CXR Radiology Interpretation Completed By: Radiologist - THERE IS CONSISTENT WITH COPD, NO EVIDENCE FOR ACUTE FINDING. - CT Brain CT Interpretation Completed By: Radiologist - 1. NO EVIDENCE FOR GROSS ACUTE INFARCT, MASS EFFECT OR HEMORRHAGE. 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 - EKG 2254 EKG Interpretation: sinus tachycardia 133, no STEMI Re-Evaluation - Re-Evaluation First Eval Re-Evaluation Time: 21:08 Change: Unchanged Comment: Family in the room at this time. Additional history obtained. Second Eval Re-Evaluation Time: 21:28 Change: Unchanged Comment: Risks and benefits of LP discussed with family. They voiced an understanding and agree to proceed with the LP. Third Eval Re-Evaluation Time: 23:33 Change: Unchanged Comment: He is still answering questions, rousable. No significant change in mental status. Complex Multi-Symp Course/Dx Course Of Treatment: Risks and benefits of LP discussed with family. They voiced an understanding and agree to proceed with the LP. During hospitalist evaluation, a CT was ordered to evaluate for neoplastic/infectious processes, and a RLL pneumonia was discovered. This is likely the infectious source accounting for leukocytosis and perhaps even hyponatremia. Did confer with hospitalist service, Chua Mackay FILLING SEPARATOR with Dr. Whitney aware, that we will in fact not proceed with LP at this time. The need for this diagnostic study can be re-evaluated in the morning. Of note, the patient reported no headache, neck pain, and exhibited no meningismus. He is also taking HCTZ which can account for hyponatremia - Diagnoses Provider Diagnoses: Dehydration with hyponatremia, Delirium, Seizures, Right lower lobe pneumonia, Sepsis - Physician Notifications Discussed Care Of Patient With: Dr. Monsalve (hospitalist) @ 2114: accepts admission. Discharge - Discharge Plan Condition: Stable Disposition: ADMITTED TO [facility] documentation as recorded by the Eamon dominguez Billy accurately reflects the service I personally performed and the decisions made by me, Gurdeep Ortega MD.
[2016-06-08] MEDS: Albuterol 2.5 MG/3 ML NEB.SOL* (0.083%) INH SCH ×4 (00:25→10:50)
[2016-06-08] MEDS: busPIRone TAB* 5 MG PO SCH (05:41)
[2016-06-08] MEDS: Heparin VIAL(*) 5000 UNITS/ML VIAL (FIVE THOUSAND) SUBCUT SCH (06:04)
[2016-06-08] MEDS: Mometasone/Formoter 200/5 MDI INH SCH (07:31)
[2016-06-08 08:46] VITALS: BP 131/64
[2016-06-08] MEDS: predniSONE TAB* 20 MG PO SCH (08:47)
[2016-06-08] MEDS: Omeprazole CAP* 20 MG PO SCH (08:56)
[2016-06-08] MEDS: Oseltamivir CAP* 30 MG CAP PO SCH (08:56)
[2016-06-08] MEDS: PTO: Dorzolamide 2% OPTH (NF) 10 ML BTL LEFT EYE SCH (08:57)
--- NOTE | 2016-06-08 12:07 | DCNOTE ---
Subjective Date of Service: 06/08/16 Interval History: Feels well enough to go home. Walked in the [place]. Germain is out. Ate well. Objective Active Medications: Acetaminophen (Tylenol Tab*) 650 mg PO Q4H PRN PRN Reason: FEVER/PAIN Albuterol (Ventolin 2.5 Mg/3 Ml Neb.Cora*) 2.5 mg INH Q4H [facility] Last Admin: 06/08/16 10:50 Dose: 2.5 mg Albuterol/Ipratropium (Duoneb (Albuterol 2.5 Mg/Ipratropium 0.5 Mg)) 1 neb INH Q2H PRN PRN Reason: SOB/WHEEZING Azithromycin (Zithromax Tab*) 500 mg PO 1999 [facility] Stop: 06/09/16 20:01 Last Admin: 06/07/16 19:40 Dose: 500 mg Buspirone HCl (Buspar Tab*) 5 mg PO Q8HR [facility] Last Admin: 06/08/16 05:41 Dose: 5 mg Dorzolamide HCl (Trusopt 2% Opth (Nf)) 1 drop LEFT EYE TID [facility] Last Admin: 06/08/16 08:57 Dose: 1 drop Heparin Sodium (Porcine) (Heparin Vial(*)) 5,000 units SUBCUT Q8HR [facility] Last Admin: 06/08/16 06:04 Dose: Not Given Latanoprost (Xalatan 0.005%*) 1 drop LEFT EYE QPM [facility] Last Admin: 06/07/16 18:20 Dose: 1 drop Mometasone Furoate/Formoterol Fumar (Dulera 200/5 Mdi*) 2 puff INH BID [facility] Last Admin: 06/08/16 07:31 Dose: 2 puff Omeprazole (Prilosec Cap*) 20 mg PO BID [facility] Last Admin: 06/08/16 08:56 Dose: 20 mg Ondansetron HCl (Zofran Inj*) 4 mg IV Q6H PRN PRN Reason: NAUSEA Oseltamivir Phosphate (Tamiflu Cap*) 30 mg PO BID [facility] Stop: 06/10/16 21:01 Last Admin: 06/08/16 08:56 Dose: 30 mg Prednisone (Deltasone Tab*) 60 mg PO DAILY [facility] Last Admin: 06/08/16 08:47 Dose: Not Given Vital Signs 06/07/16 06/07/16 06/07/16 15:47 16:46 20:00 Temperature 98.4 F Pulse Rate 118 112 Respiratory 16 20 18 Rate Blood Pressure 133/67 (mmHg) O2 Sat by Pulse 97 100 Oximetry 06/07/16 06/07/16 06/07/16 20:24 20:25 23:35 Temperature Pulse Rate 110 101 Respiratory 20 Rate Blood Pressure 109/46 (mmHg) O2 Sat by Pulse 98 99 97 Oximetry 06/08/16 06/08/16 06/08/16 07:33 07:48 08:01 Temperature 97.4 F Pulse Rate 111 108 Respiratory 14 18 16 Rate Blood Pressure 131/64 (mmHg) O2 Sat by Pulse 98 97 Oximetry 06/08/16 10:51 Temperature Pulse Rate 116 Respiratory 16 Rate Blood Pressure (mmHg) O2 Sat by Pulse 99 Oximetry Oxygen Devices in Use Now: Simple Face Mask Appearance: Alert, partly up in bed. In good spirits. Looks comfortalble. Eyes: No Scleral Icterus Ears/Nose/Mouth/Throat: Clear Oropharnyx, Mucous Membranes Moist Neck: NL Appearance and Movements; NL JVP, No Thyroid Enlargement, Masses Respiratory: Symmetrical Chest Expansion and Respiratory Effort, Clear to Auscultation, Clear to Percussion Extremities: No Edema, No Clubbing, Cyanosis, - Skin: No Rash or Ulcers, No Nodules or Sclerosis, - Neurological: Alert and Oriented x 3, NL Sensation Result Diagrams: 06/06/16 03:55 06/07/16 05:56 Additional Lab and Data: Lab Results 06/05/16 06/05/16 06/05/16 Range/Units 20:20 20:20 20:25 WBC 15.7 H (3.5-10.8) 10^3/ul RBC 4.22 (4.0-5.4) 10^6/ul Hgb 12.4 L (14.0-18.0) g/dl Hct 37 L (42-52) % MCV 89 (80-94) fL MCH 29 (27-31) pg MCHC 33 (31-36) g/dl RDW 13 (10.5-15) % Plt Count 400 (150-450) 10^3/ul MPV 6 L (7.4-10.4) um3 Neut % (Auto) 86.3 H (38-83) % Lymph % (Auto) 3.8 L (25-47) % [place] % (Auto) 9.5 H (1-9) % Eos % (Auto) 0 (0-6) % Baso % (Auto) 0.4 (0-2) % Absolute Neuts (auto) 13.5 H (1.5-7.7) 10^3/ul Absolute Lymphs (auto) 0.6 L (1.0-4.8) 10^3/ul Absolute Monos (auto) 1.5 H (0-0.8) 10^3/ul Absolute Eos (auto) 0 (0-0.6) 10^3/ul Absolute Basos (auto) 0.1 (0-0.2) 10^3/ul Absolute Nucleated RBC 0.01 10^3/ul Nucleated RBC % 0 INR (Anticoag Therapy) 0.93 (0.89-1.11) POC Glucose (mg/dL) 108 H (74-106) mg/dL Microbiology and Other Data: Microbiology 06/06/16 14:01 Nasal Screen MRSA (PCR)(RAMANDEEP) - Final Nasal Mrsa Negative 06/06/16 01:20 Legionella Urinary Antigen - Final Urine Negative Legionella Streptococcus pneumoniae Ag Screen - Final Negative S. pneumo Antigen 06/06/16 00:25 Influenza Types A,B Antigen (RAMANDEEP) - Final Nasal Specimen received for Influenza A/B Molecular testing Assess/Plan/Problems-Billing Assessment: - Patient Problems (1) Hyponatremia Current Visit: Yes Status: Acute Code(s): E87.1 - HYPO-OSMOLALITY AND HYPONATREMIA SNOMED Code(s): 13441590 Comment: Likely due mainly to thiazide, as is correcting rapidly. Family aware he can't take any more thiazide. (2) COPD (chronic obstructive pulmonary disease) Current Visit: Yes Status: Acute Code(s): J44.9 - CHRONIC OBSTRUCTIVE PULMONARY DISEASE, UNSPECIFIED SNOMED Code(s): 48599101 Comment: Advanced COPD for many years. Quit smoking about 8 yrs ago. Likely the cause of his severe PHTN. (3) Influenza B Current Visit: Yes Status: Acute Code(s): J10.1 - FLU DUE TO OTH IDENT INFLUENZA VIRUS W OTH RESP MANIFEST SNOMED Code(s): 66292561 Comment: Due to his lack of insurance coverage for meds and the fact that he appears to be at his baseline resp status with no clinical signs of infection I think he can forgo the remainder of the usual course of oseltamivir.
--- NOTE | 2016-06-08 12:08 | PN ---
Progress Note - Progress Note Note: Time spent on discharge 45 mnutes. Son present for discharge instructions.
--- NOTE | 2016-06-09 07:03 | DS ---
DISCHARGE SUMMARY: DATE OF ADMISSION: 06/05/16 DATE OF DISCHARGE: 06/08/16 HOSPITAL COURSE: This 65-year-old man came with complaint of saying he was sick. He may have been m ore short of breath than usual. He was really not a very clear historian. He was noted to have severe hyponatremia. He was wheezing quite a bit on the admission. He was giv en glucocorticoids as well as bronchodilators. He was given antibiotics. His flu test came out positive for influenza B and he was started on osel tamivir with a dose adjusted for his renal insufficiency. He had acute kidney injury. This improve d with hydration and treatment of his COPD exacerbation and influenza. His creatinine fell from 2.9 0 to 1.48 on 06/07, it was not repeated on the day of discharge. His sodium dwayne from 118 to 128 on 06/07 and was not repeated after that. I suspect it will rise higher as he had been on thiazide at home and this is likely the main cause of his hyponatremia. He had 3 troponin levels drawn, all of which were about 0.2, probably indicative of demand ischemia. I note he is on 4 L of oxygen at [facility]. I believe he has returned to his baseline state. He had no wheezing while I saw him. He will have a tapering amount of prednisone at home. Due to his lack of insurance coverage for medications, I am not sending him home on any antibiotics. There is no clinical evidence of infection at this time. He did receive about 50% of the course o f oseltamivir. He is not immunocompromised and should continue to recover well. FINAL DIAGNOSES: 1. Hyponatremia. 2. Acute kidney injury. 3. Chronic obstructive pulmonary disease with exacerbation. 4. Influenza B. DISCHARGE MEDICATIONS: 1. Prednisone 10 mg taper from 4 to 0 over 4 days. 2. Buspirone 5 mg every 8 hours. 3. Lisinopril 40 mg daily. 4. Omeprazole 20 mg b.i.d. 5. Vitamin B12 500 mcg daily. 6. Methocarbamol 500 mg t.i.d. 7. Vitamin D3 1000 units daily. 8. Latanoprost 0.005% one drop left eye h.s. 9. Dorzolamide 2% one drop left eye t.i.d. The patient will follow up with the [facility] system. [id number]/[facility] #: [id number]
== END 2016-06-08 14:30 | disposition home or self-care (01) | DRG 641 ==
LOC: ED 20:17 → ICU 22:23 → MED 06-06 19:26
PROVIDERS: ADMIT Hospitalist; ATTEND Internal Medicine
DX: E87.1 Hypo-osmolality and hyponatremia (principal); E86.0 Dehydration; N17.9 Acute kidney failure, unspecified; E87.2 Acidosis; I24.8 Other forms of acute ischemic heart disease; R65.10 Systemic inflammatory response syndrome (SIRS) of non-infectious origin without acute organ dysfunction; J44.9 Chronic obstructive pulmonary disease, unspecified; J44.1 Chronic obstructive pulmonary disease with (acute) exacerbation; Z99.81 Dependence on supplemental oxygen; J10.1 Influenza due to other identified influenza virus with other respiratory manifestations; H40.9 Unspecified glaucoma; F43.10 Post-traumatic stress disorder, unspecified; Z87.891 Personal history of nicotine dependence; I10 Essential (primary) hypertension; G89.29 Other chronic pain; M54.9 Dorsalgia, unspecified; Z80.1 Family history of malignant neoplasm of trachea, bronchus and lung; T50.2X5A Adverse effect of carbonic-anhydrase inhibitors, benzothiadiazides and other diuretics, initial encounter
CPT/HCPCS: 36415; 36600; 70450; 71010; 71250; 74176; 80048; 80053; 80307; 81003; 81015; 82533; 82570; 82803; 83605; 83930; 83935; 84145; 84146; 84300; 84443; 84484; 85025; 85610; 87040; 87086; 87502; 87641; 87899; 93005; 93306; 94640; 94760; A9270-GY; J0456; J0696; J1644; J2060; J2543; J3370; J7512